=== PATIENT | female | born 1965 | race Two or more races ===

== ENCOUNTER 2017-07-31 22:50 | Emergency (ER) | payer MEDICAID ==
[~2017-07-31] VITALS: Ht 162.6 cm; Wt 127.0 kg
[2017-07-31 22:50] VITALS: BP 154/82
[2017-07-31] MEDS ORDERED: LORazepam 0.5 MG TAB PO ONE (23:00)
[2017-07-31 23:33] LABS: White Blood Cell 4.9 10^3/uL (4.4-10.8)
[2017-07-31 23:34] LABS: Hematocrit 42.4 % (36.0-46.0); Hemoglobin 13.8 g/dL (12.2-16.2); Mean Corpuscular Hemoglobin 26.6 pg (28.0-32.0); Mean Corpuscular Hgb Conc. 32.7 g/dL (32.0-36.0); Mean Corpuscular Volume 81.3 fL (80.0-100.0); Mean Platelet Volume 7.8 fL (6.9-10.8); Platelet Count (auto) 272 10^3/uL (140-450); Red Cell Distribution Width 15.1 % (11.8-14.3)
[2017-07-31 23:37] LABS: Metamyelocytes % 0; Myelocytes % 0; Promyelocytes % 0
[2017-07-31 23:58] LABS: INR 0.93 (0.9-1.15); Partial Thromboplastin Time 24.8 sec (22.64-33.71); Prothrombin Time 10.1 sec (9.37-12.3)
[2017-08-01 00:03] LABS: Albumin 3.3 g/dL (3.4-5.0); Anion Gap 8 (5-15); Blood Urea Nitrogen 11 mg/dL (7-18); Calcium 8.3 mg/dL (8.5-10.1); Carbon Dioxide 27 mmol/L (21-32); Chloride 111 mmol/L (98-107); Glucose 114 mg/dL (74-106); Potassium 3.9 mmol/L (3.5-5.1); Sodium 146 mmol/L (136-145)
[2017-08-01 00:05] LABS: Aspartate Aminotransferase 26 U/L (15-37); BUN/Creatinine Ratio 18.6; GFR African American 138 mL/min; GFR Non-African American 114 mL/min
[2017-08-01 00:10] LABS: Alkaline Phosphatase 111 U/L (45-117); Bilirubin, Total 0.2 mg/dL (0.2-1.0); Platelet Estimate Adequate; RBC Morphology Normal; Reactive Lymphocytes 4; Total Protein 7.2 g/dL (6.4-8.2)
== END 2017-08-01 03:57 | disposition left against medical advice (07) ==
LOC: ER 22:50
DX: R07.9 Chest pain, unspecified (principal); Z53.21 Procedure and treatment not carried out due to patient leaving prior to being seen by health care provider
CPT/HCPCS: 36415; 71020; 80053; 84443; 84484; 85007; 85027; 85379; 85610; 85730